=== PATIENT | male | born 1935 | race Caucasian/White ===

== ENCOUNTER 2020-02-14 10:55 | Inpatient (IN) | payer BC, OTHER ==
[~2020-02-14] VITALS: Ht 172.7 cm; Wt 87.8 kg
[2020-02-14 11:56] LABS: Basophils # (auto) 0.1 10 ^3/uL (0-0.2); Basophils % (auto) 0.7 % (0.0-2.0); Eosinophils # (auto) 0.2 10 ^3/uL (0-0.8); Eosinophils % (auto) 2.6 % (0.0-7.0); Hematocrit 38.9 % (41.0-53.0); Hemoglobin 12.5 g/dL (13.5-17.5); Lymphocytes # (auto) 0.8 10 ^3/uL (0.4-5.4); Lymphocytes % (auto) 11.1 % (10.0-50.0); Mean Corpuscular Hemoglobin 27.3 pg (28.0-32.0); Mean Corpuscular Hgb Conc. 32.2 g/dL (32.0-36.0); Monocytes # (auto) 0.8 10 ^3/uL (0-1.3); Monocytes % (auto) 10.4 % (0.0-12.0); Neutrophils # (auto) 5.6 10 ^3/uL (1.6-8.6); Neutrophils % (auto) 75.2 % (37.0-80.0); Nucleated Red Blood Cells % 0.1 %; Platelet Count (auto) 194 10^3/uL (140-450); Red Blood Cells 4.57 10^6/uL (4.5-5.90); White Blood Cell 7.4 10^3/uL (4.4-10.8)
[2020-02-14 12:14] LABS: INR 1.03 (0.9-1.15); Partial Thromboplastin Time 26.7 sec (23.64-32.05)
[2020-02-14 12:16] LABS: Albumin 3.2 g/dL (3.4-5.0); Calcium 8.5 mg/dL (8.5-10.1); Potassium 5.1 mmol/L (3.5-5.1)
[2020-02-14 12:19] LABS: BUN/Creatinine Ratio 31.5; Bilirubin, Total 0.4 mg/dL (0.2-1.0); Total Protein 7.6 g/dL (6.4-8.2)
[2020-02-14 12:46] LABS: Magnesium 2.2 mg/dL (1.6-2.6)
[2020-02-14] MEDS ORDERED: SODIUM CHLORIDE 0.9% 500 ML IV ONE (13:30)
[2020-02-14] MEDS ORDERED: ENOXAPARIN SOD 100 MG/1 ML SYRINGE SC ONE (14:15)
[2020-02-14] MEDS ORDERED: NITROGLYCERIN 0.4 MG SL TAB SL PRN (16:30)
[2020-02-14] MEDS ORDERED: MORPHINE SULF INJ 2 MG/ML SYRINGE 1ML IV PRN ×2 (16:30)
[2020-02-14] MEDS ORDERED: DEXTROSE (50%) 50ML SYRG IV PRN (16:30)
[2020-02-14] MEDS ORDERED: ACETAMINOPHEN 325 MG TAB PO PRN (16:30)
[2020-02-14] MEDS ORDERED: ONDANSETRON HCL 4 MG/2 ML VIAL IV PRN (16:30)
[2020-02-14] MEDS ORDERED: IOHEXOL 300 MG/ML 100ML BOTTLE IJ ONE (16:33)
[2020-02-14] MEDS ORDERED: OMNIPAQUE ORAL SOLN 500ml 12mg/ml PO ONE (16:33)
[2020-02-14] MEDS: InsuLIN REG 1unit/0.01ml Soln (100units/ml) SC SCH ×2 (17:00→22:00)
[2020-02-14] MEDS: ACCU-CHEK COMFORT CURVE STRIP VI SCH ×2 (17:10→22:21)
[2020-02-14] MEDS: SODIUM CHLORIDE 0.9% 1,000 ML IV SCH ×3 (17:12→18:20)
[2020-02-14] MEDS ORDERED: FINA5TAB4 PO (18:00)
[2020-02-14] MEDS ORDERED: DONE5TAB11 PO (18:00)
[2020-02-14] MEDS ORDERED: FLUO-125 PO (18:00)
[2020-02-14] MEDS ORDERED: POTA10TA51 PO (18:00)
[2020-02-14] MEDS ORDERED: LISI-646 PO (18:00)
[2020-02-14] MEDS ORDERED: FURO40TA4 PO (18:00)
[2020-02-14] MEDS ORDERED: METF-370 PO (18:00)
[2020-02-14] MEDS ORDERED: TAMS0.4C36 PO (18:00)
[2020-02-14] MEDS ORDERED: SIMV-13 PO (18:00)
[2020-02-14] MEDS ORDERED: ASPI81CH43 PO (18:00)
--- NOTE | 2020-02-14 18:20 | NUR ---
RECEIVED PATIENT TO THE FLOOR. PATIENT AMBULATED WITH STANDBY ASSIST FROM HALLWAY RHUNKER TO BED B. PATIENT IS ALERT AND ORIENTED X4 AT THIS TIME AND NO COMPLAINTS OF PAIN NOTED. SWELLING TO THE LEFT LEG NOTED. PATIENT ON RA, INSTRUCTED ON THE PLAN OF CARE AND TO CALL NEEDED, BED LOCKED IN LOWEST POSITION WITH TWO SIDE RAILS UP AND CALL LIGHT IN REACH. WILL CONTINUE TO MONITOR.
--- NOTE | 2020-02-14 18:23 | NUR ---
PATIENT TO BE CALLED FOR ADMISSION PATIENT HAS HISTORY OF DEMENTIA.
--- NOTE | 2020-02-14 19:30 | NUR ---
Opening Shift Note Received report and assumed care of patient. Patient is awake and alert. No signs or symptoms of distress noted, patient currently denies pain. Instructed patient on plan of care and to call for assistance as needed. Will continue to monitor.
[2020-02-14] MEDS ORDERED: ATORVASTATIN 20 MG TAB PO SCH (22:00)
[2020-02-14] MEDS ORDERED: DONEPEZIL HYDROCHLORIDE 5 MG TAB PO SCH (22:00)
[2020-02-14] MEDS ORDERED: TAMSULOSIN HYDROCHLORIDE 0.4 MG CAP PO SCH (22:00)
[2020-02-14 22:13] VITALS: BP 123/67
[2020-02-14] MEDS: ENOXAPARIN SOD 100 MG/1 ML SYRINGE SC SCH (22:14)
[2020-02-15 05:30] VITALS: BP 125/61
[2020-02-15 05:57] LABS: Basophils # (auto) 0.1 10 ^3/uL (0-0.2); Basophils % (auto) 0.8 % (0.0-2.0); Eosinophils # (auto) 0.4 10 ^3/uL (0-0.8); Hematocrit 34.4 % (41.0-53.0); Hemoglobin 11.3 g/dL (13.5-17.5); Lymphocytes % (auto) 17.4 % (10.0-50.0); Mean Corpuscular Hgb Conc. 32.9 g/dL (32.0-36.0); Mean Corpuscular Volume 85.2 fL (80.0-100.0); Monocytes # (auto) 0.7 10 ^3/uL (0-1.3); Monocytes % (auto) 11.7 % (0.0-12.0); Neutrophils # (auto) 3.9 10 ^3/uL (1.6-8.6); Neutrophils % (auto) 64.1 % (37.0-80.0); Platelet Count (auto) 161 10^3/uL (140-450); Red Blood Cells 4.03 10^6/uL (4.5-5.90); Red Cell Distribution Width 13.9 % (11.8-14.3)
[2020-02-15] MEDS: InsuLIN REG 1unit/0.01ml Soln (100units/ml) SC SCH ×2 (06:16→11:30)
[2020-02-15] MEDS: ACCU-CHEK COMFORT CURVE STRIP VI SCH ×2 (06:16→12:01)
[2020-02-15 06:18] LABS: Potassium 4.7 mmol/L (3.5-5.1)
[2020-02-15 06:31] LABS: Albumin 2.7 g/dL (3.4-5.0); BUN/Creatinine Ratio 34.7; Bilirubin, Total 0.5 mg/dL (0.2-1.0); Calcium 8.1 mg/dL (8.5-10.1); Total Protein 6.5 g/dL (6.4-8.2)
--- NOTE | 2020-02-15 07:15 | NUR ---
Opening Shift Note Assumed care of patient, awake and alert. No S/S of distress/SOB or pain. Instructed on POC and to keep SHAREPOINT DEVELOPER for CT Scan abdomen and pelvis procedure,call light within reach,patient reminded instructed to call for assistance,verbalized understanding. will continue to monitor for changes Q1hr and PRN.
--- NOTE | 2020-02-15 07:45 | NUR ---
RECEIVED CALL FROM [employer] RE RESCHEDULING CT SCAN OF ABDOMEN/PELVIS IN 48 HOURS DUE TO PATIENT HAD A CTA.WILL INFORM DR. KEENE
[2020-02-15 09:00] VITALS: BP 103/59
--- NOTE | 2020-02-15 09:15 | NUR ---
PAGED DR. KEENE LEFT MESSAGE
--- NOTE | 2020-02-15 09:20 | NUR ---
JASSI DEXTER CALLED, INFORMED OF UNABLE TO DO CT OF ABDOMEN AND PELVIS DUE TO RECENT CTA WITH CONTRAST AND RADIOLOGY RE ORDER IT AFTER 48 HOUR,RECEIVED ORDER TO DO CT ABDOMEN AND PELVIS WITH ORAL CONTRAST.
[2020-02-15] MEDS ORDERED: OMNIPAQUE ORAL SOLN 500ml 12mg/ml PO ONE (09:28)
--- NOTE | 2020-02-15 09:35 | NUR ---
ORAL CONTRAST GIVEN BY HAIR OR BEAUTY SALON ASSISTANT
[2020-02-15] MEDS ORDERED: FINASTERIDE 5 MG TAB PO SCH (10:00)
[2020-02-15] MEDS ORDERED: ASPirin 81 mg TAB PO SCH (10:00)
[2020-02-15] MEDS ORDERED: POTASSIUM CHLORIDE 8 MEQ TAB PO SCH (10:00)
[2020-02-15] MEDS ORDERED: LISINOPRIL 20 MG TAB PO SCH (10:00)
[2020-02-15] MEDS ORDERED: FUROSEMIDE 40 MG TAB PO SCH (10:00)
[2020-02-15] MEDS ORDERED: FLUoxetine HCL 20 MG CAP PO SCH (10:00)
--- NOTE | 2020-02-15 12:30 | NUR ---
TO CT SCAN DEPT. FOR CT OF ABDOMEN AND PELVIS VIA WHEELCHAIR
--- NOTE | 2020-02-15 12:45 | NUR ---
BACK TO ROOM POST CT SCAN,TOLERATED PROCEDURE
[2020-02-15 13:00] VITALS: BP 123/60
[2020-02-15] MEDS: ENOXAPARIN SOD 100 MG/1 ML SYRINGE SC SCH (13:11)
[2020-02-15] MEDS: SODIUM CHLORIDE 0.9% 1,000 ML IV SCH (13:13)
--- NOTE | 2020-02-15 14:50 | NUR ---
MD VISIT DR. KEENE HERE TO SEE AND EXAMINED PATIENT,MADE AWARE OF CT RESULT,RECEIVED ORDER TO DISCHARGE PATIENT
[2020-02-15] MEDS ORDERED: APIX5TAB PO (14:51)
--- NOTE | 2020-02-15 16:00 | NUR ---
CALLED INFORMED OF DISCHARGE ORDER FROM
[2020-02-15 16:49] VITALS: BP 126/63
[2020-02-15 17:00] VITALS: BP 126/63
--- NOTE | 2020-02-15 18:30 | NUR ---
Discharge instructions given as ordered. Encourage to follow up with PMD as instructed. All questions and concerns addressed. Patient verbalized understanding. Medication reconciliation form completed and copy given to patient. IV removed with catheter intact, pressure dressing applied, . Telemetry unit returned to ICU. Patient taken to vehicle via wheelchair with all personal belongings, accompanied by staff and family member. No distress noted at time of departure.
== END 2020-02-15 18:30 | disposition home or self-care (01) | DRG 299 ==
LOC: ER 10:55 → TELE 10:56 → TELE-WESTW 18:26
PROVIDERS: ADMIT Hospitalist; ATTEND Hospitalist
DX: I82.412 Acute embolism and thrombosis of left femoral vein (principal); I26.99 Other pulmonary embolism without acute cor pulmonale; D64.9 Anemia, unspecified; F03.90 Unspecified dementia, unspecified severity, without behavioral disturbance, psychotic disturbance, mood disturbance, and anxiety; N40.0 Benign prostatic hyperplasia without lower urinary tract symptoms; I11.9 Hypertensive heart disease without heart failure; I25.10 Atherosclerotic heart disease of native coronary artery without angina pectoris; E78.00 Pure hypercholesterolemia, unspecified; E11.9 Type 2 diabetes mellitus without complications; Z90.49 Acquired absence of other specified parts of digestive tract; Z82.49 Family history of ischemic heart disease and other diseases of the circulatory system; Z95.1 Presence of aortocoronary bypass graft; Z83.3 Family history of diabetes mellitus; Z87.891 Personal history of nicotine dependence
CPT/HCPCS: 36415; 71045; 71275; 74176; 80053; 82962; 83735; 83880; 84443; 84484; 85025; 85379; 85610; 85730; 93005; 93971; 99291; G0378